=== PATIENT | male | born 1960 | race Caucasian/White ===

== ENCOUNTER 2017-03-01 16:12 | Emergency (ER) | payer OTHER ==
[2017-03-01] MEDS ORDERED: MORPHINE SULFATE 10 MG/ML INJ IM ONE (16:38)
[2017-03-01] MEDS ORDERED: DIPHENHYDRAMINE HCL 50 MG/ML VIAL IM ONE (16:38)
[2017-03-01] MEDS ORDERED: ONDANSETRON HCL INJ/PF 4 MG/2 ML SDV IV ONE (17:13)
--- NOTE | 2017-03-01 17:14 | ER Document Report ---
ED Medical Screen (RME) - General Chief Complaint: Testicular Pain Stated Complaint: TESTICLE PAIN Time Seen by Provider: 03/01/17 17:12 Mode of Arrival: Wheelchair Information source: Patient Notes: Patient presents complaining of sudden onset of left groin pain that radiates into left testicle. Patient reports nausea and vomiting 4 episodes. Patient denies any abdominal pain or back pain. No fever. States that he with ultrasound but was unable to complete the study. TRAVEL OUTSIDE OF THE [place] IN LAST 30 DAYS: No - Related Data Allergies/Adverse Reactions: Penicillins Allergy (Verified 03/01/17 16:22) Past Medical History Renal/ Medical History: Denies: Hx Peritoneal Dialysis Physical Exam - Vital signs Vitals: Temp Pulse Resp BP Pulse Ox 98.9 F 66 26 H 146/80 H 99 03/01/17 16:18 03/01/17 16:18 03/01/17 16:18 03/01/17 16:18 03/01/17 16:18 - Genitourinary Tenderness: Testicle tender - left RN arminda as standby Course - Vital Signs Vital signs: Temp Pulse Resp BP Pulse Ox 98.9 F 66 26 H 146/80 H 99 03/01/17 16:18 03/01/17 16:18 03/01/17 16:18 03/01/17 16:18 03/01/17 16:18
--- NOTE | 2017-03-01 17:45 | RADIOLOGY REPORT (SQ) ---
EXAM DESCRIPTION: U/S SCROTUM W/DOPPLER COMPLETED DATE/TIME: 03/01/2017 5:15 pm REASON FOR STUDY: sudden onset test pain COMPARISON: None. TECHNIQUE: Static and realtime perez scale imaging of the scrotum and testes. Selected color Doppler and spectral images recorded to document blood flow. LIMITATIONS: Study is limited because the patient was unable to lie comfortably on the bed and remai n still. FINDINGS: RIGHT: TESTICLE: Normal size, 42 x 30 x 22 mm. Normal echotexture. Normal blood flow by color Doppler and power Doppler. No mass. EPIDIDYMIS: Not evaluated HYDROCELE OR VARICOCELE: No. HERNIA OR EXTRA-TESTICULAR MASS: No. OTHER: No other significant finding. LEFT: TESTICLE: Not measured. Flow was demonstrated by power Doppler on initial transverse images of the s crotum. EPIDIDYMIS: Not evaluated. HYDROCELE OR VARICOCELE: No. HERNIA OR EXTRA-TESTICULAR MASS: No. OTHER: No other significant finding. IMPRESSION: Limited study. Normal right ovary. Flow was demonstrated by Doppler in each testis. TECHNICAL DOCUMENTATION: JOB ID: [id number] [employer]- All Rights Reserved
[2017-03-01] MEDS ORDERED: KETOROLAC TROMETHAMINE INJ/PF 30 MG/1 ML SDV IV ONE (18:12)
[2017-03-01] MEDS ORDERED: MORPHINE SULFATE 10 MG/ML INJ IV ONE (18:12)
--- NOTE | 2017-03-01 18:14 | ER Document Report ---
ED GI/ - General Chief Complaint: Testicular Pain Stated Complaint: TESTICLE PAIN Time Seen by Provider: 03/01/17 17:12 Mode of Arrival: Wheelchair Notes: The patient is a 36-year-old male, no past medical history, presents with sudden onset of left testicular pain and left lower quadrant abdominal pain. He has never had this in the past. He is also having nausea and vomited 4 times. He is unsure if he is having hematuria and denies dysuria, fevers, hematemesis, diarrhea, constipation, penile discharge or rash. TRAVEL OUTSIDE OF THE [place] IN LAST 30 DAYS: No - Related Data Allergies/Adverse Reactions: Penicillins Allergy (Verified 03/01/17 16:22) Past Medical History - General Information source: Patient - Social History Smoking Status: Unknown if Ever Smoked Family History: Reviewed & Not Pertinent Renal/ Medical History: Denies: Hx Peritoneal Dialysis Review of Systems - Review of Systems Notes: REVIEW OF SYSTEMS: CONSTITUTIONAL: -fevers, -chills EENT: -eye pain, -difficulty swallowing, -nasal congestion CARDIOVASCULAR:-chest pain, -syncope. RESPIRATORY: -cough, -SOB GASTROINTESTINAL: -abdominal pain, -nausea, -vomiting, -diarrhea GENITOURINARY: -dysuria, -hematuria, +left testicular pain MUSCULOSKELETAL: -back pain, -neck pain SKIN: -rash or skin lesions. HEMATOLOGIC: -easy bruising or bleeding. LYMPHATIC: -swollen, enlarged glands. NEUROLOGICAL: -altered mental status or loss of consciousness, -headache, - neurologic symptoms PSYCHIATRIC: -anxiety, -depression. ALL OTHER SYSTEMS REVIEWED AND NEGATIVE. Physical Exam - Vital signs Vitals: Temp Pulse Resp BP Pulse Ox 98.9 F 66 26 H 146/80 H 99 03/01/17 16:18 03/01/17 16:18 03/01/17 16:18 03/01/17 16:18 03/01/17 16:18 - Notes Notes: PHYSICAL EXAMINATION: GENERAL: Uncomfortable HEAD: Atraumatic, normocephalic. EYES: Pupils equal round and reactive to light, extraocular movements intact, sclera anicteric, conjunctiva are normal. ENT: nares patent, oropharynx clear without exudates. Moist mucous membranes. NECK: Normal range of motion, supple without lymphadenopathy LUNGS: Breath sounds clear to auscultation bilaterally and equal. No wheezes rales or rhonchi. HEART: Regular rate and rhythm without murmurs ABDOMEN: Soft, nontender, normoactive bowel sounds. No guarding, no rebound. No masses appreciated. : Normal lie of testicles. Non-tender testicles. EXTREMITIES: Normal range of motion, no pitting or edema. No cyanosis. NEUROLOGICAL: Cranial nerves grossly intact. Normal speech, normal gait. Normal sensory and motor exams. PSYCH: Normal mood, normal affect. SKIN: Warm, Dry, normal turgor, no rashes or lesions noted. Course - Re-evaluation Re-evalutation: Patient's limited testicular ultrasound does not show evidence of torsion. His CT shows a 2.3 mm proximal ureter stone, but urinalysis does not show evidence of infection. Provided patient with 1 L IV fluid due to some evidence of dehydration and pain control. On discharge, his pain and nausea are under control. Given strict return precautions and follow-up at urology. - Vital Signs Vital signs: Temp Pulse Resp BP Pulse Ox 98.7 F 72 16 142/76 H 100 03/01/17 22:26 03/01/17 22:26 03/01/17 22:26 03/01/17 22:26 03/01/17 22:26 - Laboratory Result Diagrams: 03/01/17 18:31 03/01/17 18:31 Laboratory results interpreted by me: 03/01/17 03/01/17 03/01/17 18:31 18:31 20:50 WBC 13.1 H Seg Neutrophils % 86.1 H Lymphocytes % 7.2 L Absolute Neutrophils 11.3 H Potassium 3.4 L Chloride 108 H Carbon Dioxide 20 L BUN 21 H Creatinine 1.53 H Est GFR ( Amer) 57 L Est GFR (Non-Af Amer) 47 L Glucose 131 H Total Bilirubin 1.4 H Urine Protein 30 H Urine Blood LARGE H - Diagnostic Test Radiology reviewed: Image reviewed, Reports reviewed Discharge - Discharge Clinical Impression: Kidney stone on left side Condition: Stable Disposition: HOME, SELF-CARE Additional Instructions: You have a 2.3 mm stone in your left ureter. Drink plenty of water, take Motrin every 6 hours with food and Percocet for severe pain. Zofran for any nausea and vomiting. Follow-up with the urologist. Return if you have worsening pain, fevers or any other concerns. KIDNEY STONE: You are passing or have passed a kidney stone. These stones are usually due to increased calcium or uric acid concentrations in your urine. Stones within the kidney itself are not painful. The pain occurs as the stone leaves the kidney to pass down the long tube, called the ureter, leading to the bladder. If the stone is small, it will usually pass by itself. Most patients can pass the stone at home. You will usually receive medications for pain, nausea or vomiting, and sometimes a medication to assist in passing the kidney stone. However, if the pain is very severe or if vomiting prevents you from taking oral pain medications, you may need to return for further treatment. Drink three or four quarts of fluids per day. You will be given pain medication (if needed) and urine strainers. Strain all your urine to see if the stone passes. If your doctor has asked you to bring the stone in for analysis, return with the stone once it has passed. Return if pain or vomiting become severe, if you develop a high fever, if you are unable to pass your urine, or if other unusual symptoms occur. TORADOL INJECTION: You have been given an injection of ketorolac tromethamine (Toradol). This is an excellent, safe drug for pain control. It also has potent antiinflammatory action. You should have significant pain relief within about one hour. Toradol is not addicting and is non-sedating. It does not interfere with driving or work. Call or return if you develop itching, hives, shortness of breath, or rash. PAIN MEDICATION INJECTION: You have received an injection of a pain medication. You should experience significant pain relief within 45 minutes. This drug is a narcotic - - it will impair your judgement, slow your reaction time and make you sleepy ( as well as relieve your pain). Narcotics also can cause nausea. You should not drive, work with machinery, or perform any task requiring mental alertness until all effects of the medication are gone -- six to eight hours. Do not take any alcohol, or sedatives, and do not take any other medication without checking with your physician. ANTINAUSEA MEDICATION: You have been given a medication to suppress nausea and vomiting. This type of medication can be given as a shot, pill, or suppository. It will usually last for many hours. Pills and shots usually last six to eight hours, suppositories last about 12 hours. For the typical illness, only one or two doses of the medication may be necessary. Mild lightheadedness may occur. This type of medicine can cause drowsiness. Do not drive or operate dangerous machinery while under its influence. Do not mix with alcohol. See your doctor at once if you have muscle spasms or tightness, or uncontrollable motions (particularly of the neck, mouth, or jaw). Persistent vomiting or severe lightheadedness should also be evaluated by the physician. ORAL NARCOTIC MEDICATION: You have been given a prescription for pain control. This medication is a narcotic. It's best taken with food, as nausea can result if taken on an empty stomach. Don't operate machinery or drive within six hours of taking this medication. Do not combine this medicine with alcohol, or with any medication which can cause sedation (such as cold tablets or sleeping pills) unless you get permission from the physician. Narcotics tend to cause constipation. If possible, drink plenty of fluids and eat a diet high in fiber and fruits. Please be aware that prescription narcotics also have the potential for abuse. People become addicted to these medications because of the general sense of wellbeing that they induce. This feeling along with a significant reduction in tension, anxiety, and aggression provides a stimulating seductive quality to these drugs. Once your pain is under control, we encourage you to discard your unused narcotics. FOLLOW-UP CARE: If you have been referred to a physician for follow-up care, call the physician s office for an appointment as you were instructed or within the next two days. If you experience worsening or a significant change in your symptoms, notify the physician immediately or return to the Emergency Department at any time for re-evaluation. Prescriptions: Ondansetron [Zofran Odt 4 mg Tablet] 1 - 2 tab PO Q4H PRN #15 tab.rapdis PRN Reason: For Nausea/Vomiting Oxycodone HCl/Acetaminophen [Percocet 5-325 mg Tablet] 1 - 2 tab PO Q4H PRN #15 tablet PRN Reason: Referrals: ROBEL SCHULER MD [NELLIE BAUER] - Follow up as needed
[2017-03-01 18:44] LABS: ABSOLUTE MONOCYTES (AUTO) 0.8 10^3/uL (0.1-1.4); ABSOLUTE NEUT (AUTO) 11.3 10^3/uL (1.7-8.2); HEMATOCRIT 41.9 % (37.9-51.0); MONOCYTES % (AUTO) 6.2 % (3-13); SEGMENTED NEUTROPHILS % (AUTO) 86.1 % (42-78); WHITE BLOOD COUNT 13.1 10^3/uL (4.0-10.5)
[2017-03-01 18:50] LABS: ABSOLUTE LYMPHOCYTES (AUTO) 0.9 10^3/uL (0.5-4.7); BASOPHILS % (AUTO) 0.3 % (0-2); EOSINOPHILS % (AUTO) 0.2 % (0-6); HEMOGLOBIN 14.3 g/dL (13.5-17.0); LYMPHOCYTES % (AUTO) 7.2 % (13-45); MEAN CORPUSCULAR HGB CONC 34.2 g/dL (32.0-36.0); MEAN CORPUSCULAR VOLUME 85 fl (80-97); RED BLOOD COUNT 4.94 10^6/uL (4.35-5.55); RED CELL DISTRIBUTION WIDTH 13.2 % (11.5-14.0)
[2017-03-01 18:59] LABS: ALANINE AMINOTRANSFERASE 50 U/L (21-72); ALBUMIN 4.7 g/dL (3.5-5.0); ALKALINE PHOSPHATASE 65 U/L (38-126); ANION GAP 14 (5-19); ASPARTATE AMINO TRANSFERASE 43 U/L (17-59); BILIRUBIN,DIRECT 0.4 mg/dL (0.0-0.4); BILIRUBIN,TOTAL 1.4 mg/dL (0.2-1.3); BLOOD UREA NITROGEN 21 mg/dL (7-20); CALCIUM 9.2 mg/dL (8.4-10.2); CARBON DIOXIDE 20 mmol/L (22-30); CHLORIDE 108 mmol/L (98-107); CREATININE RESULT 1.53 mg/dL (0.52-1.25); GLUCOSE 131 mg/dL (75-110); POTASSIUM 3.4 mmol/L (3.6-5.0); SODIUM 141.6 mmol/L (137-145)
--- NOTE | 2017-03-01 19:34 | RADIOLOGY REPORT (SQ) ---
EXAM DESCRIPTION: CT LTD RENAL STONE PROTOCOL ON COMPLETED DATE/TIME: 03/01/2017 7:05 pm REASON FOR STUDY: left flank pain into groin COMPARISON: None. TECHNIQUE: CT scan of the abdomen and pelvis performed without intravenous or oral contrast. Images reviewed with lung, soft tissue, and bone windows. Reconstructed coronal and sagittal MPR images revi ewed. All images stored on PACS. All CT scanners at this facility use dose modulation, iterative reconstruction, and/or weight based d osing when appropriate to reduce radiation dose to as low as reasonably achievable (ALARA). [facility]: Dose Right [facility]: CareDose [facility]: Dose Right [facility]: Teradose 4D [facility]: BeGo RADIATION DOSE: Up-to-date CT equipment and radiation dose reduction techniques were employed. CTDIv ol: 10.9 mGy. DLP: 656 mGy-cm.mGy. LIMITATIONS: None. FINDINGS: LOWER CHEST: No significant findings. No nodules or infiltrates. NON-CONTRASTED LIVER, SPLEEN, ADRENALS: Evaluation limited by lack of IV contrast. No identified sign ificant masses. PANCREAS: No masses. No peripancreatic inflammatory changes. GALLBLADDER: No identified stones by CT criteria. No inflammatory changes to suggest cholecystitis. RIGHT KIDNEY AND URETER: No suspicious masses. Assessment limited by lack of IV contrast. No signif icant calcifications. No hydronephrosis or hydroureter. LEFT KIDNEY AND URETER: No suspicious masses. Assessment limited by lack of IV contrast. Tiny nonob structing renal calculus is identified. A 2.3 mm in diameter obstructing calculus is identified in t he proximal left ureter best seen on image number 53. There is hydronephrosis of the left kidney an d fullness of the left ureter proximal to level of the obstructing calculus. AORTA AND RETROPERITONEUM: No aneurysm. No retroperitoneal masses or adenopathy. BOWEL AND PERITONEAL CAVITY: No obvious masses or inflammatory changes. No free fluid. APPENDIX: Normal. PELVIS, BLADDER, AND ABDOMINAL WALL:No abnormal masses. No free fluid. Bladder normal. Periumbilical hernia is identified containing fat. There is some minimal increased density in the adjacent mesent grace fat which may represent edematous or inflammatory changes. BONES: No significant findings. OTHER: No other significant finding. IMPRESSION: 2.3 mm in diameter obstructing calculus in the proximal left ureter. Small nonobstructi ng left renal calculus is identified. Periumbilical hernia containing fat as noted above. Other fin dings as noted above. TECHNICAL DOCUMENTATION: JOB ID: [id number] Quality ID # [id number]: Final reports with documentation of one or more dose reduction techniques (e.g., Au tomated exposure control, adjustment of the mA and/or kV according to patient size, use of iterative reconstruction technique) 2010 [employer]- All Rights Reserved
[2017-03-01] MEDS ORDERED: NORMAL SALINE 1000 ML 1,000 ML IV ONE (20:00)
[2017-03-01 21:33] LABS: AMORPHOUS SEDIMENT,URINE 1+ /HPF; APPEARANCE,URINE TURBID; BILIRUBIN,URINE NEGATIVE (NEGATIVE); GLUCOSE, URINE NEGATIVE (NEGATIVE); KETONES,URINE NEGATIVE (NEGATIVE); LEUKOCYTE ESTERASE,URINE NEGATIVE (NEGATIVE); NITRITE,URINE NEGATIVE (NEGATIVE); PROTEIN,URINE 30 mg/dL (NEGATIVE); UROBILINOGEN,URINE NEGATIVE mg/dL (<2.0)
[2017-03-01] MEDS ORDERED: IBUPROFEN 600 MG TABLET PO ONE (22:08)
[2017-03-01] MEDS ORDERED: OXYCODONE-ACETAMINOPHEN 5-325 MG TABLET PO ONE (22:08)
[2017-03-01] MEDS ORDERED: HYDROCODONE/ACETAMINOPHEN 5-325 MG 6 TAB/DSPK PO PRN (22:17)
[2017-03-01 22:27] VITALS: BP 142/76
== END 2017-03-01 22:27 | disposition home or self-care (01) ==
LOC: ER 16:12
DX: N20.0 Calculus of kidney (principal); N50.812 Left testicular pain; R10.32 Left lower quadrant pain; R11.2 Nausea with vomiting, unspecified
CPT/HCPCS: 99284; 96372; 96361; 96374; 96375; 36415; 85025; 80053; 81001; 76870; 93976; 76380; J1200; J1885; J2270; J7030

== ENCOUNTER → 2017-05-06 | Outpatient (CLI) | payer OTHER ==
--- NOTE | 2017-05-06 16:02 | RADIOLOGY REPORT (SQ) ---
EXAM DESCRIPTION: CT ABD/PELVIS COMBO COMPLETED DATE/TIME: 05/06/2017 3:19 pm REASON FOR STUDY: HYDRONEPHROSIS WITH RENAL AND URETERAL C (N13.2/N20.0) N13.2 HYDRONEPHROSIS WITH RENAL AND URETERAL CALCULOUS OBSTR N20.0 CALCULUS OF KIDNEY COMPARISON: 03/01/2017 CT abdomen pelvis TECHNIQUE: CT scan of the abdomen and pelvis performed with and without intravenous contrast, and wi thout oral contrast. Contrasted imaging performed helical scanning technique and dynamic intravenous contrast injection. Images reviewed with lung, soft tissue, and bone windows. Reconstructed coronal a nd sagittal MPR images reviewed. Delayed images for evaluation of the urinary system also acquired. A ll images stored on PACS. All CT scanners at this facility use dose modulation, iterative reconstruction, and/or weight based d osing when appropriate to reduce radiation dose to as low as reasonably achievable (ALARA). [facility]: Dose Right [facility]: CareDose [facility]: Dose Right [facility]: Teradose 4D [facility]: [employer] CONTRAST TYPE AND DOSE: contrast/concentration: Isovue 370.00 mg/ml; Total Contrast Delivered: 100.0 ml; Total Saline Delivered: 72.0 ml RENAL FUNCTION: Creatinine 1.2 RADIATION DOSE: Up-to-date CT equipment and radiation dose reduction techniques were employed. CTDIv ol: 10.6 - 11.7 mGy. DLP: 1887 mGy-cm. . LIMITATIONS: None. FINDINGS: NON-CONTRASTED IMAGING: No significant renal or bladder calcifications. No other significa nt organ calcifications. POST-CONTRASTED IMAGING: LOWER CHEST: Lung bases are free of focal infiltrates. There is a hiatal hernia with thickening of t he distal esophagus worrisome for reflux esophagitis or Kennedy's esophagus. LIVER: Normal size. No masses. No dilated ducts. Multiple tiny subcentimeter hepatic cysts are pres ent. SPLEEN: Normal size. No focal lesions. PANCREAS: No masses. No significant calcifications. No adjacent inflammation or peripancreatic fluid collections. Pancreatic duct not dilated. GALLBLADDER: No identified stones by CT criteria. No inflammatory changes to suggest cholecystitis. ADRENAL GLANDS: No significant masses or asymmetry. RIGHT KIDNEY AND URETER: No solid masses. No significant calcifications. No hydronephrosis or hyd roureter. LEFT KIDNEY AND URETER: No solid masses. No significant calcifications. No hydronephrosis or hydr oureter. AORTA AND VESSELS: No aneurysm. No dissection. Renal arteries, SMA, celiac without stenosis. RETROPERITONEUM: No retroperitoneal adenopathy, hemorrhage or masses. BOWEL AND PERITONEAL CAVITY: No masses or inflammatory changes. No free fluid or peritoneal masses. No bowel obstruction. APPENDIX: Normal. PELVIS: No mass. No free fluid. Normal bladder. ABDOMINAL WALL: There are bilateral fatty inguinal hernias, and a small umbilical hernia containing o mental fat. BONES: No significant or acute findings. OTHER: The left-sided proximal ureteral calculus seen on 03/01/2017 has passed. No other left-sided u rinary calculi are seen. IMPRESSION: Ob urinary stones or hydronephrosis/ hydroureter. Fat containing umbilical hernia and bilateral inguinal hernias Small hiatal hernia. Distal esophageal wall thickening above the hernia worrisome for reflux esophag itis. Kennedy's esophagus could not be excluded. TECHNICAL DOCUMENTATION: JOB ID: [id number] Quality ID # [id number]: Final reports with documentation of one or more dose reduction techniques (e.g., Au tomated exposure control, adjustment of the mA and/or kV according to patient size, use of iterative reconstruction technique) 2010 [employer]- All Rights Reserved
== END ==
LOC: RAD 14:33
PROVIDERS: ATTEND Urology
DX: N13.2 Hydronephrosis with renal and ureteral calculous obstruction (principal)
CPT/HCPCS: 74178; 82565

== ENCOUNTER 2019-03-26 17:11 | Emergency (ER) | payer OTHER ==
[2019-03-26] MEDS ORDERED: KETOROLAC TROMETHAMINE 60 MG/2 ML SDV IM ONE (17:34)
[2019-03-26] MEDS ORDERED: ONDANSETRON 4 MG TAB.RAPDIS PO ONE (17:37)
[2019-03-26] MEDS ORDERED: MAG HYDROX/AL HYDROX/SIMETH SUSP 30 ML UDCUP PO ONE (17:38)
[2019-03-26] MEDS ORDERED: LIDOCAINE 2% VISCOUS SOLN 20 ML UDCUP PO ONE (17:38)
[2019-03-26] MEDS ORDERED: METOCLOPRAMIDE HCL ORAL SOLN 10 MG/10 ML UDCUP PO ONE (17:38)
--- NOTE | 2019-03-26 17:39 | ER Document Report ---
ED Medical Screen (RME) - General Chief Complaint: Difficulty Swallowing Stated Complaint: SOMETHING "LODGED" IN THROAT Time Seen by Provider: 03/26/19 17:30 Mode of Arrival: Ambulatory Information source: Patient Notes: 58-year-old male presented to ED for complaint of pain to the throat and difficulty swallowing since he choked on some food that between 130 2:00 this afternoon. He states he did drink a big glass of milk and several bottles of water since then he did throw up some of them but he was able to drink them down. Patient is alert and oriented respirations regular and unlabored is able to speak in full sentences. I have greeted and performed a rapid initial assessment of this patient. A comprehensive ED assessment and evaluation of the patient, analysis of test resu lts and completion of medical decision making process will be conducted by an additional ED providers. TRAVEL OUTSIDE OF THE [place] 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 Allergies/Adverse Reactions: Penicillins Allergy (Verified 03/26/19 17:13) Past Medical History - General Information source: Patient - Social History Cigarette use (# per day): No Frequency of alcohol use: None Drug Abuse: None Lives with: Family Family history: Reviewed & Not Pertinent - Past Medical History Cardiac Medical History: Reports: None Pulmonary Medical History: Reports: Hx Bronchitis, Hx Pneumonia EENT Medical History: Reports: None Neurological Medical History: Reports: None Endocrine Medical History: Reports: None Renal/ Medical History: Reports: None, Hx Kidney Stones Malignancy Medical History: Reports None GI Medical History: Reports: Hx Gastroesophageal Reflux Disease, Hx Hiatal Hernia, Hx Colonoscopy Musculoskeltal Medical History: Reports None Skin Medical History: Reports None Psychiatric Medical History: Reports: None Traumatic Medical History: Reports: None Infectious Medical History: Reports: None Past Surgical History: Reports: Hx Abdominal Surgery - hernia repair, Hx Umbilical Hernia - Immunizations Immunizations up to date: Yes Hx Diphtheria, Pertussis, Tetanus Vaccination: Yes - 2018 Review of Systems - Review of Systems Constitutional: No symptoms reported EENT: Throat pain - States he choked on food around 130 2:00, Difficulty swallowing Cardiovascular: No symptoms reported Respiratory: No symptoms reported Gastrointestinal: No symptoms reported Genitourinary: No symptoms reported Male Genitourinary: No symptoms reported Musculoskeletal: No symptoms reported Skin: No symptoms reported Hematologic/Lymphatic: No symptoms reported Neurological/Psychological: No symptoms reported -: Yes All other systems reviewed and negative Physical Exam - Vital signs Vitals: Temp Pulse Resp BP Pulse Ox 98.2 F 70 18 147/84 H 95 03/26/19 17:22 03/26/19 17:22 03/26/19 17:22 03/26/19 17:22 03/26/19 17:22 Interpretation: Normal - General General appearance: Appears well, Alert - HEENT Head: Normocephalic, Atraumatic Eyes: Normal Pupils: PERRL - Respiratory Respiratory status: No respiratory distress Chest status: Nontender Breath sounds: Normal Chest palpation: Normal - Cardiovascular Rhythm: Regular Heart sounds: Normal auscultation Murmur: No - Abdominal Inspection: Normal Distension: No distension Bowel sounds: Normal Tenderness: Nontender Organomegaly: No organomegaly - Back Back: Normal, Nontender - Extremities General upper extremity: Normal inspection, Nontender, Normal color, Normal ROM, Normal temperature General lower extremity: Normal inspection, Nontender, Normal color, Normal ROM, Normal temperature, Normal weight bearing. No: Jeanette's sign - Neurological Neuro grossly intact: Yes Cognition: Normal Orientation: AAOx4 Ranulfo Coma Scale Eye Opening: Spontaneous Ranulfo Coma Scale Verbal: Oriented Ranulfo Coma Scale Motor: Obeys Commands Ranulfo Coma Scale Total: 15 Speech: Normal Motor strength normal: LUE, RUE, LLE, RLE Sensory: Normal - Psychological Associated symptoms: Normal affect, Normal mood - Skin Skin Temperature: Warm Skin Moisture: Dry Skin Color: Normal Course - Re-evaluation Re-evalutation: 03/26/19 22:44 Patient states he feels better after the GI cocktail. Soft tissue neck was negative. Patient was discharged home with prescriptions for Reglan and viscous lidocaine. He was given instructions on how to mix GI cocktail for his pain. He was instructed to only use this for severe pain in the esophagus. Patient verbalized understanding and agreement with treatment plan. Patient was discharged home. Patient was instructed to follow-up with a GI specialist. - Vital Signs Vital signs: Temp Pulse Resp BP Pulse Ox 97.6 F 72 16 138/83 H 98 03/26/19 18:37 03/26/19 18:37 03/26/19 18:37 03/26/19 18:37 03/26/19 18:37 - Diagnostic Test Radiology reviewed: Image reviewed, Reports reviewed Doctor's Discharge - Discharge Clinical Impression: Choked on food, Pain in throat and chest Condition: Stable Disposition: HOME, SELF-CARE Additional Instructions: You was seen today for pain in your throat and chest after you choked on some food. Your x-ray does not show any foreign bodies in the throat or any swelling to impede your airway. I have given you Reglan Maalox and viscous lidocaine for your discomfort which is the throat and stomach. I will write you a prescription for the liquid Reglan and the viscous lidocaine and you need to buy Maalox [id number] if you need to use this again. 10 mg of liquid Reglan, 15 cc of viscous lidocaine, and 30 cc of Maalox together drink it and it relieved the pain. FOLLOW-UP CARE: If you have been referred to a physician for follow-up care, call the physicians office for an appointment as you were instructed or within the next two days. If you experience worsening or a significant change in your symptoms, notify the physician immediately or return to the Emergency Department at any time for re-evaluation. Prescriptions: Metoclopramide HCl [Reglan Oral Soln 10 mg/10 ml Udcup] 10 mg PO BIDP PRN #14 udc PRN Reason: Lidocaine HCl [Xylocaine 2% Viscous Soln 20 ml Udcup] 15 ml PO BIDP PRN #14 udc PRN Reason: Forms: Elevated Blood Pressure
--- NOTE | 2019-03-26 18:19 | RADIOLOGY REPORT (SQ) ---
EXAM DESCRIPTION: SOFT TISSUE NECK COMPLETED DATE/TIME: 03/26/2019 6:04 pm REASON FOR STUDY: Choked on food COMPARISON: None. NUMBER OF VIEWS: Two views. TECHNIQUE: AP and lateral radiographic image of the soft tissues of the neck. LIMITATIONS: None. FINDINGS: EPIGLOTTIS: Contour normal. PREVERTEBRAL SOFT TISSUES: No soft tissue swelling. SUBGLOTTIC AREA: No narrowing. BONES: Degenerative changes at the cervical spine. LUNG APICES: Clear. OTHER: The visualized airway is patent. No radiopaque foreign body is identified. IMPRESSION: No acute radiographic findings within the soft tissues of the neck. No radiopaque forei gn body. TECHNICAL DOCUMENTATION: JOB ID: [id number] [employer]- All Rights Reserved Reading location - IP/workstation name: [email or web address]
[2019-03-26 18:37] VITALS: BP 138/83
== END 2019-03-26 18:54 | disposition home or self-care (01) ==
LOC: ER 17:11
DX: T17.928A Food in respiratory tract, part unspecified causing other injury, initial encounter (principal); R07.0 Pain in throat; R07.9 Chest pain, unspecified; R13.10 Dysphagia, unspecified; R11.2 Nausea with vomiting, unspecified; X58.XXXA Exposure to other specified factors, initial encounter; Z87.891 Personal history of nicotine dependence
CPT/HCPCS: 99284; 96372; 70360; J1885; S0119; J3490

== ENCOUNTER 2019-07-10 05:26 | Day surgery (SDC) | payer OTHER ==
[2019-07-03 08:56] LABS: HEMATOCRIT 45.4 % (37.9-51.0); HEMOGLOBIN 15.8 g/dL (13.5-17.0); MEAN CORPUSCULAR HGB CONC 34.9 g/dL (32.0-36.0); MEAN CORPUSCULAR VOLUME 83 fl (80-97); PLATELET COUNT 210 10^3/uL (150-450); RED BLOOD COUNT 5.46 10^6/uL (4.35-5.55); RED CELL DISTRIBUTION WIDTH 12.9 % (11.5-14.0); WHITE BLOOD COUNT 6.9 10^3/uL (4.0-10.5)
--- NOTE | 2019-07-03 09:19 | RADIOLOGY REPORT (SQ) ---
EXAM DESCRIPTION: CHEST PA/LATERAL COMPLETED DATE/TIME: 07/03/2019 9:09 am REASON FOR STUDY: PRE-OP COMPARISON: None. EXAM PARAMETERS: NUMBER OF VIEWS: two views TECHNIQUE: Digital Frontal and Lateral radiographic views of the chest acquired. RADIATION DOSE: NA LIMITATIONS: none FINDINGS: LUNGS AND PLEURA: No opacities, masses or pneumothorax. No pleural effusion. MEDIASTINUM AND HILAR STRUCTURES: No masses or contour abnormalities. HEART AND VASCULAR STRUCTURES: Heart normal size. No evidence for failure. BONES: No acute findings. HARDWARE: None in the chest. OTHER: No other significant finding. IMPRESSION: NO SIGNIFICANT RADIOGRAPHIC FINDING IN THE CHEST. TECHNICAL DOCUMENTATION: JOB ID: [id number] [employer]- All Rights Reserved Reading location - IP/workstation name: [email or web address]
[2019-07-03 09:29] LABS: ANION GAP 10 (5-19); BLOOD UREA NITROGEN 19 mg/dL (7-20); CALCIUM 9.6 mg/dL (8.4-10.2); CARBON DIOXIDE 25 mmol/L (22-30); CHLORIDE 106 mmol/L (98-107); GLUCOSE 95 mg/dL (75-110); POTASSIUM 4.5 mmol/L (3.6-5.0)
--- NOTE | 2019-07-04 00:17 | EKG REPORT ---
SEVERITY:- BORDERLINE ECG - SINUS BRADYCARDIA BORDERLINE T ABNORMALITIES, INFERIOR LEADS : Confirmed by: Saul Holden 04-Jul-2019 00:15:39
[~2019-07-10 05:26] MED LIST: ACETAMINOPHEN 325 MG TABLET PO PRN; IBUPROFEN 800 MG in NORMAL SALINE 250 ML IV PRN; LACTATED RINGERS 1000 ML IV PRN; LIDOCAINE 0.5% INJ-PF (5 MG/ML) 50 ML SDV SUBCUT PRN; PREGABALIN 50 MG CAPSULE PO PRN
[2019-07-10] MEDS ORDERED: ACETAMINOPHEN 325 MG TABLET ONE (05:45)
[2019-07-10] MEDS ORDERED: PREGABALIN 50 MG CAPSULE ONE (05:46)
[2019-07-10] MEDS ORDERED: FENTANYL CITRATE INJ/PF 100 MCG/2 ML AMPUL ONE ×2 (06:23→11:09)
[2019-07-10] MEDS ORDERED: ONDANSETRON HCL INJ/PF 4 MG/2 ML SDV ONE ×2 (06:23→10:55)
[2019-07-10] MEDS ORDERED: DEXAMETHASONE SOD PHOSPHATE INJ 4 MG/1 ML VIAL ONE (06:23)
[2019-07-10] MEDS ORDERED: PROPOFOL INJ 200 MG/20 ML VIAL IV ONE (06:23)
[2019-07-10] MEDS ORDERED: MIDAZOLAM 2 MG/2 ML INJ ONE (06:23)
[2019-07-10] MEDS ORDERED: SUGAMMADEX SODIUM 200 MG/2 ML SDV IV ONE (06:23)
[2019-07-10] MEDS ORDERED: LIDOCAINE 0.5% INJ-PF (5 MG/ML) 50 ML SDV ONE (06:26)
[2019-07-10] MEDS: VANCOMYCIN HCL 1,000 MG in DEXTROSE 5%-WATER 250 ML IV PRN ×2 (06:55→07:01)
[2019-07-10] MEDS ORDERED: SCOPOLAMINE HYDROBROMIDE 1.5 MG PATCH.TD72 ONE (07:13)
[2019-07-10] MEDS ORDERED: BUPIVACAINE HCL 0.5 % INJ/PF 30 ML SDV ONE (07:16)
[2019-07-10] MEDS ORDERED: BUPIVACAINE HCL 0.25 % INJ/PF (2.5 MG/1 ML) 30 ML VIAL ONE (07:16)
[2019-07-10] MEDS ORDERED: DIPHENHYDRAMINE HCL 50 MG/ML VIAL IV PRN (08:46)
[2019-07-10] MEDS ORDERED: FENTANYL CITRATE INJ/PF 100 MCG/2 ML AMPUL IV PRN ×3 (08:46)
[2019-07-10] MEDS ORDERED: PROMETHAZINE HCL INJ 25 MG/1 ML VIAL IV PRN ×2 (08:46)
[2019-07-10] MEDS ORDERED: MORPHINE SULFATE 10 MG/ML INJ IV PRN (08:46)
[2019-07-10] MEDS ORDERED: MEPERIDINE HCL/PF INJ 25 MG/1 ML DISP.SYRIN IV PRN (08:46)
[2019-07-10] MEDS ORDERED: ONDANSETRON HCL INJ/PF 4 MG/2 ML SDV IV PRN (08:46)
--- NOTE | 2019-07-10 10:29 | Discharge Summary ---
Discharge Summary (SDC) - Discharge Final Diagnosis: Symptomatic right inguinal hernia and symptomatic, incarcerated umbilical hernia. Date of Surgery: 07/10/19 Discharge Date: 07/10/19 Condition: Stable Treatment or Instructions: Discharge home. Diet as tolerated. Activity: No lifting greater than 10 pounds x 6 weeks. Follow-up with me in 10 to 14 days. [place] 10/325 mg p.o. every 6 hours PRN for pain. Ibuprofen 800 mg p.o. 3 times daily with meals. Okay to shower in 48 hours. No tub baths or swimming pools x2 weeks. Referrals: [facility] [[facility]] - Discharge Diet: As Tolerated Respiratory Treatments at Home: Deep Breathing/Coughing, Incentive Spirometer Discharge Activity: No Lifting Over 10 Pounds, No Lifting/Push/Pulling Home Care Assistance: None Needed Report the Following to Your Physician Immediately: Shortness of Breath, Nausea, Vomiting, Increase in Pain, Fever over 101 Degrees, Unusual Bleeding, Redness
--- NOTE | 2019-07-10 10:43 | Operative Report ---
Nonrecallable Operative Report DATE OF SURGERY: 07/10/19 PREOPERATIVE DIAGNOSIS: 1. Symptomatic right inguinal hernia. 2. Symptomatic, incarcerated umbilical hernia. POSTOPERATIVE DIAGNOSIS: Same as above. OPERATION: 1. Robot-assisted laparoscopic right inguinal hernia repair with mesh. 2. Laparoscopic umbilical hernia repair with mesh. SURGEON: JAYSHREE YOUNGER ANESTHESIA: GA TISSUE REMOVED OR ALTERED: None COMPLICATIONS: None apparent ESTIMATED BLOOD LOSS: Minimal PROCEDURE: Drains/implants: 1. right-sided large 3 DMax inguinal hernia mesh. 2. 10 x [address] hernia mesh. Procedure in detail: After informed consent was obtained, the patient was brought to the operating room and laid in the supine position. The area of the abdomen was prepped and draped in a normal sterile fashion. A left upper quadrant incision was created with a 15 blade scalpel. The 5 mm trocar, 5 mm camera were inserted into the abdominal cavity under direct laparoscopic vision, with the aid of the Optiview technique. Next, an epigastric trocar, 12 mm in diameter was placed under direct laparoscopic visualization. 2 right and left 8 mm, robotic abdominal wall trochars were placed under direct laparoscopic visualization. There was incarcerated omentum within the umbilical hernia defect. The incarcerated omentum was reduced back into the abdominal cavity with the aid of blunt intra-abdominal dissection and manual external pressure. Once all the omentum was freed from the umbilical hernia defect, the robot was brought over the patient and docked appropriately. I then assumed my position at the surgeon's console. Attention was turned to the right groin. A preperitoneal dissection was unde rtaken approximately 3 cm superior to the indirect inguinal hernia defect. The preperitoneal dissection was undertaken using a mixture of sharp and blunt dissection, as well as electrocautery. The hernia sac was freed from the cord structures, taking great care not to injure the cord structures. A large lipoma of the cord was reduced back into the abdominal cavity. Next, the large 3D max inguinal hernia mesh was inserted into the preperitoneal space, and situated over the defect. The mesh was sutured into place using 2-0 Vicryl suture in simple interrupted fashion. This was done medially and superiorly. The peritoneum was then closed using 2-0 V-Lock suture in simple running fashion. Once this was completed, the repair was inspected. It was found to be in good order. The robot was then undocked, and attention was turned to closure of the incarcerated umbilical hernia defect. I then scrubbed back into the case. Attention was turned to the repair of the umbilical hernia defect. Preperitoneal fat was cleared away from the anterior abdominal wall, exposing the defect. The defect was measured to be approximately 2 cm in diameter. Next, #1 Ethibond suture was used to close the umbilical hernia defect in [id number] fashion, with the aid of the Luis- Nafisa device. After this was accomplished, a 10 x [address] hernia mesh was inserted into the abdominal cavity. It was sutured to the anterior abdominal wall in 4 quadrants with trans-fascial 0 Prolene sutures. Next, the mesh was affixed to the anterior abdominal wall using the Sorba-fix device. This was done circumferentially. Once the mesh was circumferentially tacked to the anterior abdominal wall, the 12 mm trocar was removed. The 12 mm trocar site was closed using 0 Vicryl suture in [id number] fashion with the aid of the Luis-Nafisa device. Once this was completed, gas insufflation was removed, pneumoperitoneum was relieved, and the trochars were removed. The overlying skin was then closed using 4-0 Vicryl Rapide suture in subcuticular fashion. Dressings were placed, and the procedure was concluded. All sponge, instrument, and needle counts were correct x2. Condition: Stable.
[2019-07-10] MEDS ORDERED: HYDROCODONE/ACETAMINOPHEN 10-325 MG TABLET ONE (12:05)
[2019-07-10 13:32] VITALS: BP 128/62
[2019-07-10] MEDS ORDERED: SUCCINYLCHOLINE CHLORIDE INJ 200 MG/10 ML VIAL ONE (14:34)
[2019-07-10] MEDS ORDERED: ROCURONIUM BROMIDE INJ 50 MG/5 ML VIAL IV ONE (14:34)
== END 2019-07-10 13:15 | disposition home or self-care (01) ==
LOC: OROUT 05:26
PROVIDERS: ATTEND Surgery
DX: K40.90 Unilateral inguinal hernia, without obstruction or gangrene, not specified as recurrent (principal); K42.0 Umbilical hernia with obstruction, without gangrene
CPT/HCPCS: 49587; 49650; S2900; 36415; 71046; 80048; 840; 85027; 86850; 86900; 86901; 93005; 93010; C1713; C1781; J0330; J1100; J1741; J2250; J2405; J2704; J3010; J3370; J3490; J7050; J7060